=== PATIENT | female | born 1930 | race Caucasian/White ===

== ENCOUNTER → 2019-01-31 | Outpatient (CLI) | payer OTHER, BC ==
[~2019-01-31] VITALS: Ht 167.6 cm; Wt 70.3 kg
[~2019-01-31] MED LIST: AMITRIPTYLINE H50 M2 PO; LASIX 40 MG TAB40 M2 PO; LIPITOR 20 MG T20 M1 PO; NEURONTIN100 MG PO; OXYGEN NASAL; PREVACID15 MG PO; SORINE 80 MG TA80 M1 PO; SPIRONOLACTONE25 MG PO; SYNTHROID100 MC1 PO; WARFARIN SODIUM5 MG PO; XANAX 0.25 MG0.25 MG PO
[2019-01-31 10:23] LABS: PROTIME 77.4 Seconds (9.3-11.4)
[2019-01-31 10:28] LABS: INR 7.5
== END | disposition home or self-care (01) ==
LOC: GI 08:51 → EDSTATUS 15:44
PROVIDERS: Anesthesiology
DX: R13.19 Other dysphagia (principal); Z53.8 Procedure and treatment not carried out for other reasons; I11.0 Hypertensive heart disease with heart failure; I50.9 Heart failure, unspecified; E78.5 Hyperlipidemia, unspecified; I25.2 Old myocardial infarction; K21.9 Gastro-esophageal reflux disease without esophagitis; Z90.710 Acquired absence of both cervix and uterus; Z98.890 Other specified postprocedural states; Z98.41 Cataract extraction status, right eye; Z98.42 Cataract extraction status, left eye; Z79.899 Other long term (current) drug therapy; Z95.5 Presence of coronary angioplasty implant and graft; Z86.73 Personal history of transient ischemic attack (TIA), and cerebral infarction without residual deficits; Z88.0 Allergy status to penicillin; Z88.2 Allergy status to sulfonamides; Z88.8 Allergy status to other drugs, medicaments and biological substances